=== PATIENT | female | born 1995 | race African-American/Black ===

== ENCOUNTER 2017-06-12 13:18 | Emergency (ER) | payer BC ==
[~2017-06-12] VITALS: Ht 160 cm; Wt 72.7 kg
[2017-06-12 13:24] VITALS: BP 142/67; TEMP 99.4
[2017-06-12] MEDS ORDERED: ADVIL200 MG PO (14:26)
[2017-06-12] MEDS ORDERED: ADVIL LIQUI-GE200 MG PO (14:27)
[2017-06-12] MEDS ORDERED: BACTRIM DS 8001 TAB PO (14:41)
[2017-06-12] MEDS ORDERED: NORCO 325 MG-51 TAB PO (14:41)
[2017-06-12 15:19] VITALS: PULSE 110
== END 2017-06-12 15:20 | disposition home or self-care (01) ==
LOC: COL.ER 13:18
DX: L05.01 Pilonidal cyst with abscess (principal)